=== PATIENT | female | born 1965 | race Caucasian/White ===

== ENCOUNTER 2023-11-30 14:39 | Emergency (ER) | payer OTHER, SELFPAY ==
--- NOTE | ~2023-11-30 | XR_ITS ---
EXAMINATION: XR ABDOMEN KUB CLINICAL INDICATION: Obstipation and lower abdominal pain COMPARISON: None available. TECHNIQUE: AP view of the abdomen. FINDINGS: The bowel gas pattern is normal with no evidence of ileus or obstruction. No unusual soft tissue calcifications are noted. The bones are unremarkable. XR/XR KUB IMPRESSION: Unremarkable examination. Electronically signed by: Magaly Young MD 11/30/2023 04:38 PM EDT
[2023-11-30 14:47] VITALS: BP 154/93; PULSE 77; RESP 16; TEMP 36.6; O2SAT 98; BMI 25.3
--- NOTE | 2023-11-30 14:52 | ED.ABDPAIN ---
HPI - Abdominal Pain General Chief Complaint: Abdominal Pain Stated Complaint: Abd pain Time Seen by Provider: 11/30/23 20:47 Source: patient and family Limitations: no limitations History of Present Illness HPI narrative: 58-year-old female who has a history of constipation, presents for evaluation of lower abdominal pain. Patient states symptoms first began on November 26 around dinnertime. Patient states it was sharp, crampy and ultimately resolved on its own. Patient states she has a history of constipation and states that this has been a lifelong issue. She does report that this is similar to previous episodes. She had been doing well throughout the week however her symptoms returned today. She contacted her PCP was unable to be seen and was therefore sent to the emergency department for further evaluation. Currently the patient has minimal to no pain in her lower abdomen. She states that she has had several small firm bowel movements today after taking Metamucil. She reports feeling much better after this. She has not had any urinary symptoms. No hematochezia or melena. She did have an episode of nausea but no vomiting earlier today but that has since resolved. No recent travel. No sick contacts. Related Data Allergies Allergy/AdvReac Type Severity Reaction Status Date / Time No Known Allergies Allergy Verified 11/30/23 14:54 Review of Systems Constitutional: Denies chills and Denies fever(s) Cardiovascular: Denies chest pain, Denies palpitations, Denies dyspnea, Denies dyspnea on exertion and Denies orthopnea Respiratory: Denies cough, Denies dyspnea and Denies dyspnea on exertion Gastrointestinal: Denies melena, Denies hematochezia, Reports constipation, Denies diarrhea, Reports nausea and Denies vomiting Genitourinary: Denies dysuria and Denies urinary urgency Musculoskeletal: Denies back pain, Denies muscle weakness and Denies numbness Skin/Breast: Denies rash Denies focal weakness and Denies numbness Psychiatric: Denies depression Endocrine: Denies palpitations PMFSH Social History Social History Advance Directives: No Advance Directives Information Provided: No Do you have a plan to hurt others: No Plan Physical Exam ED Vital Signs: Vital Signs - 24 hr 11/30/23 14:47 11/30/23 20:09 Temperature 97.9 F 98.1 F Pulse Rate 77 70 Respiratory Rate 16 16 Blood Pressure 154/93 H 126/69 Pulse Oximetry 98 99 Oxygen Delivery Method Room Air Room Air BMI result Body Mass Index 25.3 Const General: alert, awake and Physically active Resp Other: Lung sounds clear throughout Cardio Other: Heart rate regular GI Other: Abdomen is soft. There is normoactive bowel sounds throughout. There is no tenderness throughout. No peritoneal signs. No CVAT. Course Course Course Narrative: This is an RME performed by Kapil De La O CNP: Additional HPI, ROS, PE not included below will be deferred to primary provider. Patient is a 58-year-old female presents emergency department for evaluation of diffuse lower abdominal pain left greater than right. Reports onset a few days ago, symptoms were somewhat improving worsened again last night. Denies associated symptoms. Admits to history of chronic constipation, has been using MiraLax, recent past a few very small stools today. Denies hematochezia or melena. Denies pain to the back. Exam: Diffuse lower abdominal tenderness upon palpation, no CVAT Plan: Serum labs, urinalysis, KUB Medical Decision Making Medical Decision Making [facility] Narrative: 58-year-old female with intermittent abdominal pain and constipation throughout this week. Currently she is essentially asymptomatic. Labs do not demonstrate any acute abnormality. Urinalysis is without signs of infection. Abdominal x-ray is unremarkable for obstruction or constipation. Patient has taking Metamucil intermittently. This may be beneficial for her to resume given her symptoms. She last saw a GI doctor and had a colonoscopy less than 10 years ago. Given that the patient's vitals are stable, no leukocytosis and no acute abnormality on labs or imaging and reassuring abdominal exam I have had extensive discussion with the patient and her about additional imaging such as with a CT. She has weighed the risks and benefits of this and has elected to defer at this time. Patient states that she will continue to monitor symptoms and will return if any changes. Patient expressed understanding of all discharge instructions and has no further questions at this time. Differential Diagnosis Differential Diagnoses: The differential diagnosis associated with the presentation includes Bowel obstruction Constipation Colitis UTI Dehydration Admission/Observation Consideration of admission/observation: Escalation of care including admission/observation considered Lab Data [facility] Lab Attestation statement: I reviewed the patient's lab results. 11/30/23 15:13 11/30/23 15:13 Labs: Lab Results 11/30/23 Range/Units 15:13 WBC 6.3 (4.8-10.8) X10*3/uL RBC 4.38 (4.20-5.50) X10*6/uL Hgb 13.8 (12.0-16.0) g/dl Hct 39.2 (37.0-47.0) % MCV 89.5 (80.0-98.0) fL MCH 31.5 (27.0-33.0) pg MCHC 35.2 H (31.0-35.0) g/dl RDW 12.3 (11.0-16.0) % Plt Count 227 (160-400) X10*3/uL MPV 8.8 L (9.4-12.3) fL Immature Gran % (Auto) 0.2 (0.0-0.4) % Neut % (Auto) 50.4 (45-73) % Lymph % (Auto) 40.2 H (20-40) % Winston % (Auto) 7.3 (2-11) % Eos % (Auto) 1.4 (0-4) % Baso % (Auto) 0.5 (0-2) % Lymph # (Auto) 2.5 (1.2-4.9) X10*3/uL Winston # (Auto) 0.5 (0.1-1.2) X10*3/uL Eos # (Auto) 0.1 (0.0-0.4) X10*3/uL Baso # (Auto) 0.0 (0.0-0.2) X10*3/uL Abs Immat Gran (auto) 0.01 (0.00-0.03) X10*3/uL Absolute Neuts (auto) 3.2 (2.0-8.3) x10*3/uL Absolute Nucleated RBC 0.000 (0.0-0.012) X10*3/uL Nucleated RBC % (auto) 0.0 (0.0-0.2) /100WBC Sodium 142 (135-145) mmol/L Potassium 3.6 (3.3-5.1) mmol/L Chloride 108 (96-108) mmol/L Carbon Dioxide 25 (22-29) mmol/L Anion Gap 13 (12-20) BUN 14 (9-16) mg/dL Creatinine 0.97 (0.5-1.4) mg/dL Estim Creat Clear Calc 57.2 Estimated GFR 59 Random Glucose 110 (60-115) mg/dL Calcium 10.0 (8.4-10.2) mg/dL Total Bilirubin 0.6 (0.0-1.0) mg/dL AST 24 (5-31) U/L ALT 18 (0-31) U/L Alkaline Phosphatase 72 (39-117) U/L Total Protein 7.2 (6.5-8.0) g/dL Albumin 4.6 (3.5-5.0) g/dL Lipase 41 (8-78) U/L Urine Color Yellow Urine Appearance Clear Urine pH 6.5 (5.0-9.0) Ur Specific Carmichael 1.010 (1.005-1.025) Urine Protein Negative (Neg-Trace) mg/dL Urine Glucose (UA) Negative (Negative) mg/dL Urine Ketones Negative (Negative) mg/dL Urine Blood Negative (Negative) Urine Nitrite Negative (Negative) Ur Leukocyte Esterase Trace H (Negative) Urine RBC 0-2 (0-2) /HPF Urine WBC 0-5 (0-5) /HPF Ur Squamous Epith Cells 0-2 (0-2) /HPF Urine Bacteria None Seen (None Seen) Hyaline Casts 0-2 (0-2) /LPF Radiology Impression Discussion of test interpretation with radiology: I have reviewed the radiologist's reading. Radiologist Impression: [place] [id number] XRay Report Signed Patient: Whitley Townsend MR#: [id number] : 1965 Acct:[id number] Age/Sex: 58 / F ADM Date: 11/30/23 Loc: .ED Attending Dr: Ordering Physician: Negrita De La O CNP Date of Service: 11/30/23 Procedure(s): XR KUB Accession Number(s): [id number] cc: Negrita De La O CNP; Tyrell De Leon MD~ EXAMINATION: XR ABDOMEN KUB CLINICAL INDICATION: Obstipation and lower abdominal pain COMPARISON: None available. TECHNIQUE: AP view of the abdomen. FINDINGS: The bowel gas pattern is normal with no evidence of ileus or obstruction. No unusual soft tissue calcifications are noted. The bones are unremarkable. XR/XR KUB IMPRESSION: Unremarkable examination. Electronically signed by: Magaly Young MD 11/30/2023 04:38 PM EDT Dictated By: Magaly Young MD Signed By: <Electronically signed by Magaly Young MD in OV> 11/30/23 1638 DD/ 1505 TD/TT: 11/30/23 1510 Photoengraving Sketch Maker: Independent Historian Clinical information obtained from an independent historian. History obtained from or confirmed by: Spouse Discharge Plan Discharge Clinical Impression: Constipation, Lower abdominal pain Patient Disposition: Home, Self-Care Instructions: Constipation (DC), Abdominal Pain (ED) Additional Instructions: Clear liquids. [place] diet. Gradually advanced. Continue Metamucil to help with bowel movements. Drink plenty of fluids. Follow up with your GI doctor, call next week to schedule follow up appointment. Follow-up with your primary care provider. Call this week to schedule a follow-up appointment. Return to the emergency department if you have any worsening of symptoms, or any concerns. Get well soon! Print Language: Sinhala
[2023-11-30 15:20] LABS: MANUAL DIFF FLAG NO
[2023-11-30 15:23] LABS: Basophils Percent Auto 0.5 % (0-2); Eosinophils Absolute Auto 0.1 X10*3/uL (0.0-0.4); Eosinophils Percent Auto 1.4 % (0-4); Hematocrit 39.2 % (37.0-47.0); Hemoglobin 13.8 g/dl (12.0-16.0); Imm Gran Abs Auto 0.01 X10*3/uL (0.00-0.03); Imm Gran Pct Auto 0.2 % (0.0-0.4); Lymphocytes Absolute Auto 2.5 X10*3/uL (1.2-4.9); Lymphocytes Percent Auto 40.2 % (20-40); Mean Corpuscular HGB Conc 35.2 g/dl (31.0-35.0); Mean Corpuscular Hemoglobin 31.5 pg (27.0-33.0); Mean Corpuscular Volume 89.5 fL (80.0-98.0); Mean Platelet Volume 8.8 fL (9.4-12.3); Monocytes Absolute Auto 0.5 X10*3/uL (0.1-1.2); Monocytes Percent Auto 7.3 % (2-11); Neutrophils Absolute Auto 3.2 x10*3/uL (2.0-8.3); Neutrophils Percent Auto 50.4 % (45-73); Platelet Count 227 X10*3/uL (160-400); Red Blood Count 4.38 X10*6/uL (4.20-5.50); Red Cell Distribution Width 12.3 % (11.0-16.0); White Blood Count 6.3 X10*3/uL (4.8-10.8)
[2023-11-30 15:24] LABS: Appearance Urine Clear; Color Urine Yellow; Glucose Urine UA Negative (Negative); Leukocyte Esterase Urine Trace (Negative); Nitrite Urine Negative (Negative); PH 6.5 (5.0-9.0); UMIC TRIGGER UACC YES; Urine Blood Negative (Negative); Urine Ketones Negative (Negative); Urine Protein Negative (Neg-Trace)
[2023-11-30 15:29] LABS: Bacteria Urine None Seen (None Seen); Hyaline Casts Urine 0-2 /LPF (0-2); RBC Urine 0-2 /HPF (0-2); Squamous Epithelial Cell Urine 0-2 /HPF (0-2); WBC Urine 0-5 /HPF (0-5)
[2023-11-30 15:37] LABS: Alanine Aminotransferase 18 U/L (0-31); Albumin Level 4.6 g/dL (3.5-5.0); Alkaline Phosphatase 72 U/L (39-117); Anion Gap 13 (12-20); Aspartate Amino Transferase 24 U/L (5-31); Bilirubin Total 0.6 mg/dL (0.0-1.0); Blood Urea Nitrogen 14 mg/dL (9-16); Carbon Dioxide 25 mmol/L (22-29); Chloride 108 mmol/L (96-108); Creatinine Clr Calc Pharmacy 57.2; Estimated Glomerular Filt Rate 59; Glucose Random 110 mg/dL (60-115); Lipase 41 U/L (8-78); Potassium 3.6 mmol/L (3.3-5.1); Sodium 142 mmol/L (135-145); Total Protein 7.2 g/dL (6.5-8.0)
[2023-11-30 20:09] VITALS: BP 126/69; PULSE 70; RESP 16; TEMP 36.7; O2SAT 99
[2023-11-30 21:25] VITALS: BP 126/69; PULSE 70; RESP 16; TEMP 36.7; O2SAT 99
== END 2023-11-30 21:26 | disposition home or self-care (01) ==
PROVIDERS: Nurse Practitioner Family; Emergency Provider Emergency Medicine; PCP Internal Medicine
DX: K59.00 Constipation, unspecified (principal); R10.30 Lower abdominal pain, unspecified
CPT/HCPCS: 36415; 74018; 80053; 81001; 83690; 85025; 99283; 99284

== ENCOUNTER 2025-02-02 15:35 | Outpatient (AMB) | payer OTHER, SELFPAY ==
--- NOTE | 2025-02-02 16:03 | AM.OFFWIN_ITS ---
Intake Vital Signs 02/02/25 16:04 Height 5 ft 3 in Weight 148 lb BMI 26.2 BP 126/88 Blood Pressure Location Rt brachial Position Sitting Pulse 97 Pulse Source Pulse Oximeter Temp 97.9 F Temp Source Oral Pulse Oximetry (%) 97 Oxygen Delivery Method Room Air Intake Visit Reasons: EP right eye irritation Intake Note: pt presents with right eye redness, pain and watering beginning today Allergies No Known Allergies Allergy (Verified 02/02/25 16:13) Do you need a note to return to daycare/school/sports/work: No HPI HPI Comments History of Present Illness Details History of Present Illness - The patient is a 59-year-old female wh o presents with a foreign body sensation in her right eye that began today around 11:30 AM. - She believes it may have occurred when something blew from a car vent. - She describes the sensation as painful , particularly at the top of the lid when she closes her eye, but is unsure of the nature of the foreign object. - She attempted to alleviate the discomf ort with warm compresses at home. - The patient denies wearing contact vincent ses. - She denies blurry vision or double vis ion. - She denies discharge. Physical Exam General: Cooperative, healthy appearing, comfortable, no acute distress and well developed Orientation: Patient oriented x3 Limitations: No limitations Head: Normal to inspection Eyes: PERRLA. EOMI. Sclera is pink, conjunctiva is erythematous. Tearing noted. No FB noted, no hordeolum noted. Neck: Normal visual inspection and Yes full ROM. No lymphadenoapthy noted. Respiratory: Normal respiratory effort and able to speak in complete sentences. Clear to auscultation bilaterally Cardiovascular: Regular rate and rhythm. Normal S1 and S2. No m/r/g noted. Skin: No rashes or lesions noted Patient was informed and verbally consented to the use of an ambient scribe for clinic note documentation during this visit. Review of Systems Const All systems reviewed & are unremarkable except as noted in HPI and below Physical Exam Vital Signs: Last Vital Signs Temp 97.9 F 02/02/25 16:04 Pulse 97 02/02/25 16:04 BP 126/88 02/02/25 16:04 Pulse Ox 97 02/02/25 16:04 Oxygen Delivery Method Room Air 02/02/25 16:04 BMI result Body Mass Index 26.2 Office Procedures Fluorescein eye exam Details: Flourescein to the right eye with some uptake noted on the sclera. No FB noted. Assessment & Plan Assessment & Plan (1) Pain, eye, right: Code(s): H57.11 - Ocular pain, right eye Plan Most likely a Corneal Abrasion from a FB plan - The patient's foreign body sensation is likely secondary to a corneal abrasion, as the tearing mechanism would have likely cleared any floating debris. - No foreign body was visualized on exam. - Prescribed antibiotic eye drops to be used three times a day - Advised to use cold compresses and to avoid rubbing the eye to prevent further irritation. - Instructed the patient to follow up with her eye doctor if the eye pain does not improve or worsens within 24 hours Orders: Orders AMB Fluorescein eye exam Today S05.01XA - Injury of conjunctiva and corneal abrasion without foreign body, right eye, initial encounter Medications: New polymyxin B sulf-trimethoprim 10,000 unit- 1 mg/mL use every 3 hours while awake; do not exceed 6 doses in 24 hours 1 drp ophthalmic-Right Q3H 10 mL 0RF 7 days Coding Level of Care Code Est Pt Level 3 (15891) Diagnoses Pain, eye, right H57.11
[2025-02-02 16:04] VITALS: BP 126/88; PULSE 97; TEMP 36.6; O2SAT 97; BMI 26.2
--- OUTSIDE RECORDS SUMMARY | 2025-02-02 22:02 | XMS_ITS | Encounter Summary ---
Author Organization [facility] Address [address] [place] [address] Care Team Providers Care Waste Reduction Coordinator Name Role Phone Tyrell De Leon MD Primary Care Provider [phone] Reason for Visit * Reason Onset Date Comments right eye hurts 02/02/2025 Encounter Details Date Type Department Care Team (Late st Contact Info) Description 02/02/2025 Telephone Adult Medicine [facility] [address] [place] [phone] Tyrell De Leon MD [address], [place] [phone] Social History Tobacco Use Types Packs/Day Years Used Date Smoking Tobacco: Former Cigarettes 0 Q uit: 02/19/1994 Smokeless Tobacco: Never Alcohol Use Standard Drinks/Week Comments No 0 (1 standard drink = 0.6 oz pur e alcohol) Housing Instability Answer Date Recorde d Are you worried that in the next 2 months you may not have stable housing? No 03/23/2024 Food Access & Nutrition Answer Date Rec orded Do you have access to a vari ety of food including fruits and vegetables? Yes 03/23/2024 Access to Healthcare Answer Date Record ed Within the last 3 months, antonio garza many times did you visit the emergency department for your medical care? 0 03/23/2024 Health Literacy Answer Date Recorded How often do you need to hav e someone help you when you read instructions, pamphlets, or other written material from your doctor or pharmacy? Never 03/23/2024 Caregiver: How often do you need to have someone help you when you read instructions, pamphlets, or other written material from your doctor or pharmacy? Not on file 03/23/2024 Financial Risk Answer Date Recorded How hard is it for you to pa y for the very basics like food, housing, medical care, and air conditioning / heating? Not very hard 03/23/2024 Transportation Answer Date Recorded Has the lack of transportati on kept you from meetings, work, or from getting things needed for daily living? No Has the lack of transportati on kept you from medical appointments or from getting medications? No 03/23/2024 Social Isolation Answer Date Recorded How often do you feel lonely or isolated from th ose around you? Never 03/23/2024 Food Risk Answer Date Recorded Within the past 12 months we worried whether our food would run out before we got money to buy more. Never true 03/23/2024 Within the past 12 months th e food we bought just didn't last and we didn't have money to get more. Never true 03/23/2024 Dependent Care Answer Date Recorded Do you need help finding or paying for care for your loved ones. For example, early childhood teacher assistant or elderly care for an older adult? No 03/23/2024 Education Answer Date Recorded Do you think completing more education or training, like finishing a GED, going to college, or learning a trade, would be helpful for you? No 03/23/2024 Employment and Income Answer Date Recor ded During the last four weeks, have you been actively looking for work? No 03/23/2024 Living Situation Answer Date Recorded What is your living situation? Unrecognized valu e 03/23/2024 Comments No Sex and Gender Information Value Date Recorded Sex Assigned at Not on file Legal Sex Female 9:34 AM EST Gender Identity Not on file Sexual Orientation Not on file documented as of this encounter Progress Notes * Dang Machado RN - 02/02/2025 3:34 PM EST Pt is at urgent care now * Cheyanne Farr - 02/02/2025 2:56 PM EST Patient call requires triage: Symptoms patient is presenting: Right eye bothering, watering, hurts, its red and irritated, painful. How long has patient had these symptoms?: 02/02/2025 For ALL patients calling to schedule any appointment (routine, sick visit, follow up, consult, etc.) in the outpatient setting please ask the following questions: Do you have fever of higher than 101, sore throat with difficulty swallowing or severe shortness ofbreath? no If YES to any of these above symptoms, send a message to triage and do not book. Red dot. If no, an audio or video visit should be booked. Have you had close contact with someone with Coronavirus in the last 14 days? no Have you traveled abroad? no Have you traveled recently to another state outside of [place], [place], [place], [place], [place], [place], [place]? no o If yes, did you quarantine for 14 days or have a negative covid test? no If yes to any of the above, patient is not to be scheduled in office until after 14 day quarantine or negative covid test. If pain or injury related was it due to an accident at work or from a motor vehicle accident? If yes, date of accident/Injury: No If yes, gather 3rd democrat insurance information Third Green Party Information: not applicable PCP: Tyrell De Leon MD Payor: [facility] / Plan[facility] / Product Type: *No Product type*/ documented in this encounter Plan of Treatment Upcoming Encounters Date Type Department Care Team (Late st Contact Info) Description 04/07/2025 9:00 AM EST Office Visit Obstetrics and Gynecology - [address] [phone] Harika Oakes, [id number] 04/13/2025 9:00 AM EST Office Visit Adult Medicine [address] [phone] Tyrell De Leon MD [address] [place] [address] 06/04/2025 8:00 AM EDT Appointment Radiology Department - [place] [address] [place] [phone] documented as of this encounter Visit Diagnoses Not on filedocumented in this encounter Additional Health Concerns Assessment Noted Time PHQ-9 Depression Total Score: 0 03/29/19 25 5:45 PM EST documented as of this encounter Care Teams Waste Reduction Coordinator Relationship Specialty Start Date End Date Tyrell De Leon MD [address] [place] [phone] PCP - General Internal Medicine 03/28/24 documented as of this encounter
--- OUTSIDE RECORDS SUMMARY | 2025-02-02 22:02 | XMS_ITS | Clinical Summary ---
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 Activ e FLAXSEED OIL ORAL Take by mouth. Activ e DAILY MULTI-VITAMIN ORAL Take by mouth. Activ e estradioL (ESTRACE) 0.01 % (0.1 mg/gram) vaginal cream Insert vaginally 1 gram nightly for 2 weeks, then 0.5 gram nightly for 2 weeks, then 0.5 gram nightly M-W-F for maintenance. 34 g 3 5 Active atorvastatin (LIPITOR) 10 mg tablet TAKE 1 TABLET BY MOUTH EVERY DAY 90 tablet 1 5 Active Active Problems Problem Noted Date Diagnosed Date Gall bladder polyp 04/09/2012 Overview (04/29/2023): US 2016 showing decreased size and numbers Pain in thoracic spine 05/07/2008 Tarlov cysts 05/07/2008 Thoracic and lumbosacral neuritis 05/07/2008 Overview (04/29/2023): IMO update Elevated liver enzymes 10/08/2007 Overview (04/29/2023): While taking simvastatin Currently very stable on atorrvastatin Pain in joint, ankle and foot 02/03/2005 Pure hypercholesterolemia 02/03/2005 Irritable bowel syndrome 02/03/2005 Overview (04/29/2023): Constipation predominant Encounters Date Type Department Care Team Description 02/02/2025 Telephone Adult Medicine [address] [phone] Tyrell De Leon MD from Last 3 Months Immunizations Immunization Administration Dates Next Due Influenza trivalent, with pr eservative (Fluzone; Afluria) 6mo and older 11/17/2011 Td Tetanus diptheria (Tdvax) 7yo and older 10/12 Tdap Tetanus diptheria acell ular pertussis (Boostrix; Adacel) 7yo and older 03/07/2023,11/17/2011 Surgical History Surgery Date Site/Laterality Comments OTHER SURGICAL HISTORY PROCEDURE: HISTORY OTHER; COMMENT: pilonidal cyst cyst on back rmoved bilat foot surgery LASER ABLATION OF THE CERVIX PROCEDURE: FL CAUTERY CERVIX LASER ABLATION COLONOSCOPY 2006 [facility] [place] PROCEDURE: HISTORICAL COLONOSCOPY; COMMENT: hemorrhoids OTHER SURGICAL HISTORY 11/19/15 PROCEDURE: COLON CA SCRN NOT HI RSK IND; COMMENT: hemorrhoids; repeat in 10 yrs BREAST BIOPSY Left PROCEDURE: BX BREAST; PERC NEEDLE CORE W/IMAG GUID; COMMENT: LEFT BREAST BX-BENIGN MANY YRS. AGO Medical History Medical History Date Comments Irritable bowel syndrome 02/03/2005 DX:Irri table bowel syndrome Pure hypercholesterolemia 02/03/2005 DX:Pur e hypercholesterolemia Pilonidal cyst without menti on of abscess 02/03/2005 DX:Pilonidal cyst without me ntion of abscess Pain in joint, ankle and foot 02/03/2005 DX :Pain in joint, ankle and foot Other specified personal his tory presenting hazards to health(V15.89) 1984 DX:Other specifie d personal history presenting hazards to health(V15.89); COMMENT: abnormal pap years ago Gall bladder polyp 04/09/2012 DX:Gall bladd er polyp; COMMENT: US 2016 showing decreased size Elevated liver enzymes 10/08/2007 DX:Elevat ed liver enzymes; COMMENT: While taking simvastatin Currently very stable on atorrvastatin Family History Medical History Relation Name Comments Breast cancer Aunt 1 P 50s paternal Brain cancer Aunt 2 maternal No Known Problems Brother Lung cancer Father at age 50, lung ca mets to bone, smoker No Known Problems Maternal Grandfather No Known Problems Maternal Grandmother COPD Mother former smoker Cataracts Mother Lung cancer Mother No Known Problems Other No Known Problems Paternal Grandfather No Known Problems Paternal Grandmother No Known Problems Sister 1 No Known Problems Sister 2 No Known Problems Sister 3 No Known Problems Uncle Blindness Neg Hx Colon cancer Neg Hx Glaucoma Neg Hx Macular degeneration Neg Hx Ovarian cancer Neg Hx Strabismus Neg Hx Relation Name Status Comments Aunt 1 P 50s Aunt 2 Brother Alive SUBSTANCE ISSUE S Father cancer lung Maternal Grandfather Maternal Grandmother Mother Alive Other Paternal Grandfather Paternal Grandmother Sister 1 Alive partial pancrea tecemy Sister 2 Alive cholesterol Sister 3 Alive Uncle Social History Tobacco Use Types Packs/Day Years Used Date Smoking Tobacco: Former Cigarettes 0 Q uit: 02/19/1994 Smokeless Tobacco: Never Tobacco Cessation:Counseling Given: Not Answered Alcohol Use Standard Drinks/Week Comments No 0 [...] Record ed Within the last 3 months, ho w many times did you visit the emergency [...] care for your loved ones. For example, child advocate or elderly care for an older adult? [...] on file Sexual Orientation Not on file Obstetrics History * This document contains information received from the source organization and may not represent a complete record from that organization. Para Term AB IAB SAB Ectopic Multiple Livin g Live Births 2 0 0 0 0 0 0 0 Date Outcome GA Total Labor Labor/2nd/3rd Weight Sex Type Anes PTL Marcella A1 A5 Name Clin Last Filed Vital Signs Vital Sign Reading Time Taken Comments Blood Pressure 99/68 10/09/2024 8:13 AM EDT Pulse 74 10/09/2024 8:13 AM EDT Temperature 35.9 C (96.7 F) 10/09/2024 8:13 AM EDT Respiratory Rate 12 10/09/2024 8:13 AM EDT Oxygen Saturation 98% 02/19/2024 3:44 PM EST Inhaled Oxygen Concentration - - Weight 65.3 kg (144 lb) 10/09/2024 8:13 AM EDT Height 160 cm (5' 3 ) 10/09/2024 8:13 AM EDT Body Mass Index 25.51 10/09/2024 8:13 AM EDT Plan of Treatment Upcoming Encounters Date Type Department Care Team (Late st Contact Info) Description 04/07/2025 9:00 AM EST Office Visit Obstetrics and Gynecology - [address] [phone] Harika Oakes CNM [address] [place] [address] 04/13/2025 9:00 AM EST Office Visit Adult Medicine [facility] - [address] [phone] Tyrell De Leon MD [address] [place] [address] 06/04/2025 8:00 AM EDT Appointment Radiology Department - [address] [phone] Health Maintenance Due Date Last Done Comments Hepatitis B Vaccines (1 of 3 - 19+ 3-dose series) 1984 Pneumococcal Vaccine: 50+ Years (1 of 1 - PCV) 2015 Zoster Vaccines (1 of 2) 2015 HIV Screening 01/28/2022 Cervical Cancer Screening: Pap Smear 04/06/2024 04/06/2021, 04/19/2018 COVID-19 Vaccine ( season) 2024 11/18/2020, 10/28/2020 Influenza Vaccine (#1) 2024 02/02/2020, 2011 Social Influencers of Health Screening 03/23/2025 03/23/2024 Colorectal Cancer Screening: Colonoscopy 11/18/2025 11/19/2015, 11/19/2015 Breast Cancer Screening 05/29/2026 05/30/19 25, 05/25/2023, 05/02/2023, Additional history exists Cholesterol Screening (Lipid Panel) 10/08/2029 10/08/2024 DTaP,Tdap,and Td Vaccines (4 - Td or Tdap) 03/07/2033 03/07/2023, 11/17/2011, 10/13/2003 RSV Immunization Adult Patients (1 - 1-dose 75+ series) 2040 Hepatitis C Screening Addressed 04/05/2013 Overri dden with the intention of not completing the topic Depression Screening Completed 03/29/2024 HIB Vaccines Aged Out No longer eligi ble based on patient's age to complete this topic HPV Vaccines Aged Out No longer eligi ble based on patient's age to complete this topic Hepatitis A Vaccines Aged Out No long er eligible based on patient's age to complete this topic IPV Vaccines Aged Out No longer eligi ble based on patient's age to complete this topic MMR Vaccines Aged Out No longer eligi ble based on patient's age to complete this topic Meningococcal ACWY Vaccine Aged Out N o longer eligible based on patient's age to complete this topic Meningococcal B Vaccine Aged Out No l onger eligible based on patient's age to complete this topic RSV Immunization Patients Under 20 months Aged Out No longer eligible based on patient's age to complete this topic Varicella Vaccines Aged Out No longer eligible based on patient's age to complete this topic Procedures Procedure Name Priority Date/Time Associated Diagnosis Comments LIPID PANEL WITH REFLEX TO DIRECT LDL Routine 10/08/2024 7:52 AM EDT Routine general medical examination at a health care facility MG MAMMO DIGITAL SCREENING W DALTON BILAT Routine 05/29/2024 9:36 AM EDT Encounter for screening mammogram for breast cancer PAP SMEAR Routine 04/06/2021 from Last 3 Months or Most Recently Relevant to Health Maintenance Results * (ABNORMAL) Lipid panel with reflex to direct LDL (10/08/2024 7:52 AM EDT) Cholesterol 220(H) 0 - 200 mg/dL LAB CHEMISTRY METHOD 10/08/2024 11:22 AM EDT [facility] Triglycerides 116 0 - 150 mg/dL LAB CHEMISTRY METHOD 10/08/2024 11:22 AM EDT [facility] HDL 84 >=40 mg/dL LAB CHEMISTRY METHOD [facility] LDL Calculated 113(H) 0 - 100 mg/dL LAB CHEMISTRY METHOD 10/08/2024 11:22 AM EDT [facility] Comment:Estimated LDL Calcul ated using equation: Total cholesterol - HDL cholesterol - (Triglycerides/5) VLDL Cholesterol Salvador 23.2 mg/dL LAB CHEMISTRY METHOD 10/08/2024 11:22 AM EDT [facility] Non HDL Chol. (LDL+VLDL) 136 <145 mg/dL LAB CHEMISTRY METHOD [facility] Chol/HDL Ratio 2.6 0.0 - 4.4 LAB CHEMISTRY METHOD 10/08/2024 11:22 AM EDT [facility] Blood Venous blood specimen / Unknown Venipuncture / Unknown 10/08/2024 7:52 AM EDT 10/08/2024 7:52 AM EDT us Tyrell De Leon MD LAB BLOOD ORDERABLES Final Resul t [facility] [address] [place] [address], [place] [phone] * MG Mammo Digital Screening w Dalton bilat (05/29/2024 9:36 AM EDT) Anatomical Region Laterality Modality Breast Bilateral Mammography 05/29/2024 12:4 1 PM EDT Impressions 05/29/2024 12:44 PM EDT BILATERAL BREASTS: Benign, no evidence of malignancy. Normal interval follow-up is recommended in 12 months. BREAST DENSITY: B - There are scattered areas of fibroglandular density. BI-RADS CATEGORY: 2 - BENIGN RECOMMENDATION: Screening bilateral mammogram is recommended in 1 year. Mammo Location: [facility], [address] [place] [address], [id number], . -------- FINAL REPORT -------- Dictated By: Mateo Jade Dictated Date: 05/29/2024 12:41 ET Assigned Physician: Mateo Jade Reviewed and Electronically Signed By: Mateo Jade Signed Date: 05/29/2024 12:44 ET Workstation ID: [id number] Transcribed By: Self Edit Transcribed Date: 05/29/2024 12:41 ET Narrative 05/29/2024 12:44 PM EDT STUDY: Bilateral screening mammography with tomosynthesis and CAD TECHNIQUE: Bilateral full-field digital screening mammography is obtained and read in conjunction with computer-aided detection. Tomosynthesis as well as 2-D C view imaging were obtained. COMPARISON: Comparison made to multiple prior, most recent May 02, 2023, and most remote January 29, 2015. RIGHT BREAST: No significant masses, suspicious calcifications or other abnormalities are seen. LEFT BREAST: History of previous needle core biopsy. No significant masses, suspicious calcifications or other abnormalities are seen. Procedure Note Mateo Jade MD - 05/29/2024 STUDY: Bilateral screening mammography with tomosynthesis and CAD TECHNIQUE: Bilateral full-field digital screening mammography is obtainedand read in conjunction with computer-aided detection. Tomosynthesis aswell as 2-D C view imaging were obtained. COMPARISON: Comparison made to multiple prior, most recent May 02, 2023,and most remote January 29, 2015. RIGHT BREAST: No significant masses, suspicious calcifications or otherabnormalities are seen. LEFT BREAST: History of previous needle core biopsy. No significantmasses, suspicious calcifications or other abnormalities are seen. IMPRESSION: BILATERAL BREASTS: Benign, no evidence of malignancy. Normal intervalfollow-up is recommended in 12 months. BREAST DENSITY: B - There are scattered areas of fibroglandular density. BI-RADS CATEGORY: 2 - BENIGN RECOMMENDATION: Screening bilateral mammogram is recommended in 1 year. Mammo Location: [facility], [address] [place] [address], [id number], . -------- FINAL REPORT -------- Dictated By: Mateo Jade Dictated Date: 05/29/2024 12:41 ET Assigned Physician: Mateo Jade Reviewed and Electronically Signed By: Mateo Jade Signed Date: 05/29/2024 12:44 ET Workstation ID: [id number] Transcribed By: Self Edit Transcribed Date: 05/29/2024 12:41 ET Tyrell De Leon MD IM BI PROCEDURES Final Result * Pap smear (04/06/2021) 04/06/2021 Narrative HISTORICAL TESTING LAB RESULTING AGENCY - 04/25/2021 7:26 AM EST [id number] THINPREP PAP, IMAGED: NEGATIVE FOR SQUAMOUS INTRAEPITHELIAL LESION AND MALIGNANCY . ATROPHY. NOTE: THE PAP TEST IS A SCREENING TEST WITH AN INHERENT FALSE NEGATIVE RATE. AUTOMATED PRESCREENING OF ALL LIQUID BASED SPECIMENS IS PERFORMED BY THE THINPREP IMAGING SYSTEM UNLESS OTHERWISE STATED. ESTER ADAMS(ASCP) (CASE ELECTRONICALLY SIGNED 04 22 2021) RESULT OF APTIMA HIGH RISK HPV ASSAY: HIGH RISK HPV: NEGATIVE (SEROTYPES 16,18,31,33,35,39,45,51,52,56,58,59,66,68) COMPLETED ON 2021-04-11 ADEQUACY: SATISFACTORY ENDOCERVICAL/TRANSFORMATION ZONE COMPONENT PRESENT. SOURCE: THINPREP PAP HPV ANY DX: REFLEX 16 AND 18, CERVICAL, IMAGED CLINICAL INFORMATION: HPV ANY DIAGNOSIS. MENOAPUSE, PAP HX NEGATIVE, LMP 04/28/2014. Z12.4 us Anamaria Sandoval CN LAB CYTOLOGY ORDERA NOEMIS Final Result HISTORICAL TESTING LAB RESULTING AGENCY from Last 3 Months or Most Recently Relevant to Health Maintenance Insurance [facility] Care Teams Termite Exterminator Helper Relationship Specialty Start Date End Date Tyrell De Leon MD [address] [place] [id number] PCP - General Internal Medicine 03/28/24
== END 2025-02-02 16:36 | disposition home or self-care (01) ==
PROVIDERS: PCP Internal Medicine; Visit Provider Physician Assistant Medical
DX: H57.11 Ocular pain, right eye (principal)